=== PATIENT | male | born 1970 | race Caucasian/White ===

== ENCOUNTER 2025-04-14 07:10 | Outpatient (CLI) | payer OTHER, SELFPAY ==
--- NOTE | 2025-04-14 | MR_ITS ---
FINAL REPORT TECHNIQUE: Multiplanar and multisequence imaging of the cervical spine was obtained. CLINICAL HISTORY: chronic neck pain from repetitive motions at work, pain radiates down arms FINDINGS: Alignment is normal. Vertebral body height is preserved. Signal intensity within the substance of the spinal cord is normal. No acute bone marrow edema. No acute paraspinal abnormality. C2/3: No focal disc herniation, central canal stenosis, or neural foraminal narrowing. C3/4: Annular disc bulge with mild degenerative endplate changes. No significant central canal stenosis or neuroforaminal narrowing. C4/5: Annular disc bulge without central canal stenosis, or neural foraminal narrowing. C5/6: Annular disc bulge with degenerative endplate changes and facet osteoarthropathy. There is mild central canal stenosis and severe bilateral neuroforaminal narrowing. C6/7: Right paracentral disc protrusion without central canal stenosis or neuroforaminal narrowing. C7/T1: No focal disc herniation, central canal stenosis, or neural foraminal narrowing. IMPRESSION: 1. Right paracentral disc protrusion at C6-7. 2. Multilevel degenerative disc disease, most pronounced at C5-6. Reviewed, Interpreted and Dictated by Gladys Merchant MD Transcribed by Christy Abbasi Authenticated and [facility]
--- OUTSIDE RECORDS SUMMARY | 2025-04-14 07:14 | XMS_ITS | Continuity of Care Document ---
Author Organization [facility] Address [facility] [place] [address] Care Team Providers Care Collections Manager Name Role Phone MARKO BIGGS Speeder Frame Tender [phone] Assessment No assessment recorded. Plan of Treatment Reminders Order Date Submit Date Provider Last Modified By Organization Details Last Modified Time Details Appointments None recorded. Lab None recorded. Referral physical therapist referral 2024 025 [facility], [address], [place], [address], 01:05:04 Procedures None recorded. Surgeries None recorded. Imaging MRI, cervical spine, w/o contrast [address] ([facility]), [address], [place], [address], 5 11:37:25 Medication Orders cyclobenzap rine 10 mg tablet 2024 025 [facility], [facility] [facility], [place], [address], 5 14:55:07 duloxetine 60 mg capsule,del ayed release 2024 025 [facility], [address] [place] [address], [address], 5 14:55:08 Patient TargetsNo targets recorded. Patient InstructionsNo instructions recorded. Reason for Referral Physical Therapist Referral for Neck pain Referring Physician: Shelby Monteiro, Family Medicine, Encounter Date: 03/17/2025 Procedures Surgical History Date Name Laterality Status Provider Name and Address Organization Details Recorded Time Appendectomy completed Mago Dodd [employer], [employer]. 06/25/2024 14:23:26 Imaging Results None recorded. Procedure Notes None recorded. Medical Equipment None Reported. Allergies No known drug allergies Medications Name Sig Start Date Stop Date Status Note LastModified by Organization Details LastModified Time cyclobenzapr ine 10 mg tablet TAKE 1 TABLET BY MOUTH 3 TIMES DAILY NEEDED active Not Available Not Available No t Available omeprazole 40 mg capsule,moshe yed release TAKE ONE CAPSULE BY MOUTH EVERY DAY active Not Available Not Available No t Available Prilosec OTC 20 mg tablet,delay ed release Take 1 tablet every day by oral route. 03/17 completed Not Available Not Available Not Available duloxetine 60 mg capsule,moshe yed release TAKE 1 CAPSULE BY MOUTH TWICE DAILY FOR 90 DAYS active Not Available Not Available No t Available Vitals Date Recorded Body height Body mass index (BMI) Body weight Heart rate Oxygen saturation Oxygen saturation in Arterial blood by Pulse oximetry Body temperature Systolic And Diastolic Provider Name and Address Organization Details Last Updated DateTime 5 180.34 cm 27.5 kg/m2 36928.7 g 80 /min 98 % 98 % 97.2 [degF] 130/83 mm[Hg] Mago Coultery [employer], [employer]. 5 09:38:12 Social History Question Answer Notes LastModified by Organizat ion Details LastModified Time Tobacco Smoking Status Former Smoker [employer]ago [employer]. 06/25/2024 14:23:20 Are You Blind Or Do You Have Difficulty Seeing? Yes Information not available 06/25/2024 What Is Your Level Of Caffeine Consumption? Occasional Information not available 06/25/2024 Are You Deaf Or Do You Have Serious Difficulty Hearing? No Information not available 06/25/2024 What Type Of Diet Are You Following? REGULAR Information not available 06/25/2024 How Many Days Of Moderate To Strenuous Exercise, Like A Brisk Walk, Did You Do In The Last 7 Days? 5 Information not available 06/25/2024 When Did You Quit Smoking? 11-15yearssinc elastcigarette Information not available 06/25/2024 Which Of Your Hands Is Dominant? Right Information not available 06/25/2024 What Was The Date Of Your Most Recent Tobacco Screening? 03/27/2025 Information not available 03/27/2025 What Is Your Current Pack Years? 20-29packyears Information not available 06/25/2024 What Is Your Relationship Status? Information not available 06/25/2024 Have You Repeated Any Grades? No Information not available 06/25/2024 How Much Tobacco Do You Smoke? 1 PPD Information not available 06/25/2024 Has Tobacco Cessation Counseling Been Provided? No Information not available 06/25/2024 Do You Have Difficulty Walking Or Climbing Stairs? No Information not available 06/25/2024 Sex: Male Functional Status Question Answer Note LastModified by Organizat ion Details LastModified Time Do you use any illicit or recreational drugs? No Information not available 06/25/2024 Do you or have you ever used any other forms of tobacco or nicotine? No Information not available 06/25/2024 What is your level of alcohol consumption? None Information not available 06/25/2024 Are you currently employed? Yes Information not available 06/25/2024 Are you able to walk independently without assistance or assistive devices? YESWOREST Information not available 06/25/2024 Do you have difficulty doing errands alone? No Information not available 06/25/2024 Are you able to care for yourself independently? Yes Information not available 06/25/2024 Do you have difficulty dressing, bathing, grooming, or toileting? No Information not available 06/25/2024 What is your exercise level? Occasional Information not available 06/25/2024 Mental Status Question Answer Note LastModified by Organization D etails LastModified Time Do you have difficulty concentrating, remembering or making decisions? No Information no t available 06/25/2024 Family History Nothing Reported. Medical History No medical history recorded. Immunizations Vaccine Type Date Status Note Provider Nam e and Address Organization Details Recorded Time COVID-19, mRNA, LNP-S, PF, 100 mcg/0.5mL dose or 50 mcg/0.25mL dose 09/24/2020 completed Not Available [facility] 13:51:55 COVID-19, mRNA, LNP-S, PF, 100 mcg/0.5mL dose or 50 mcg/0.25mL dose 10/22/2020 completed Not Available [facility] 13:51:55 COVID-19, mRNA, LNP-S, PF, 100 mcg/0.5mL dose or 50 mcg/0.25mL dose 05/20/2021 completed Not Available [facility] 13:51:55 Tdap 06/18/2021 completed Not Available [facility] 03/27/2025 13:51:55 COVID-19, mRNA, LNP-S, PF, 100 mcg/0.5mL dose or 50 mcg/0.25mL dose 02/18/2022 completed Not Available [facility] 13:51:55 Past Encounters Encounter ID Performer Location Encounter Start Date Encounter Closed Date Diagnosis/Indication Diagnosis SNOMED-CT Code Diagnosis ICD10 Code Diagnosis IMO Codes Diagnosis Note [id number] Shelby Monteiro APRN [address] [address] 03/17/2025 09:29:53 03/17/2025 10:27:08 Narrowing of intervertebral disc space 52362564 M99.79 [id number] Neck pain 66889543 M54.2 21478 Depressed mood 339371495 R45.89 [id number] Overweight in adulthood with body mass index of 25 or more but less than 30 928187896 Z68.27 [id number] Health Concerns Section Related Observation LastModified by Organization Detai ls LastModified Time None Recorded Concern Status LastModified by Organization Details LastModified Time None Recorded Payers Encounter Date Sequence Insurance Name Policy Number Policy Hanson Covered Member ID Hanson Member ID Guarantor Name 03/17/2025 1 *SELF PAY* Ra caty Rodriguez Notes Date Note Type Note Provider Name and Address Organization Details Recorded Time 03/17/2025 text/html pt here today for f/u for neck pain. pt states that he has recently filed a workman's comp claim and will bring back the information. pt states that the neck pain has actually gotten worse. states that he has not been able to go back to work since first visit 9 months ago. states that the muscle relaxer helps some at night in that it helps relaxes him and makes him sleepy but it doesnt help much during the day. states that he can barely move his neck. states that it is a constant dull ache and then when he moves his neck it is worse. states that now the neck pain is causing pt to have headaches almost daily and the pain is going down his back. states that he takes ibuprofen often and the he has to lay flat on the floor to get his back to stop hurting. and then that makes his neck hurt worse. on exam, neck has limited ROM with side to side, flexion and extension, with pain. pt states that there is also pain at base of skull that is causing him a headache. pt also states that due to him not being able to work he is worried about his bills and that he is not contributing to his family. states that he is having to depend on his parents for help at times. states that he is feeling depressed. states that he has felt depression before but never like this. denies any thoughts or plans of suicide. states that he just feels down not being able to work due to the next pain. i am going to order an MRI for further evaluation of the disc, PT, cymbalta and refill the muscle relaxer. Shelby Monteiro APRN [address] [facility], [place], [address], [facility] [employer] 03/17/2025 11:36:39
== END 2025-04-14 23:59 | disposition home or self-care (01) ==
LOC: RAD 07:12
PROVIDERS: PCP Nurse Practitioner; Visit Provider Nurse Practitioner
DX: M50.31 Other cervical disc degeneration, high cervical region (principal); M50.321 Other cervical disc degeneration at C4-C5 level; M50.322 Other cervical disc degeneration at C5-C6 level; M50.223 Other cervical disc displacement at C6-C7 level
CPT/HCPCS: 72141

== ENCOUNTER 2025-04-29 16:00 | Outpatient (RCR) | payer OTHER, SELFPAY | END 2025-04-29 23:59 | disposition home or self-care (01) | LOC: PT.CARL 16:00 | PROVIDERS: Visit Provider Nurse Practitioner | DX: M54.2 Cervicalgia (principal) | CPT/HCPCS: 97012; 97110; 97112; 97140; 97161; 97530 ==

== ENCOUNTER 2025-05-27 11:00 | Outpatient (RCR) | payer OTHER, SELFPAY | END 2025-05-27 23:59 | disposition home or self-care (01) | LOC: PT.CARL 11:00 | PROVIDERS: PCP Nurse Practitioner; Visit Provider Nurse Practitioner | DX: M54.2 Cervicalgia (principal) | CPT/HCPCS: 97012; 97110; 97112; 97530 ==

== ENCOUNTER 2025-06-04 13:39 | Outpatient (RCR) | payer OTHER, SELFPAY | END 2025-06-09 10:49 | disposition home or self-care (01) | LOC: PT.CARL 13:39 | PROVIDERS: PCP Nurse Practitioner; Visit Provider Nurse Practitioner | DX: M54.2 Cervicalgia (principal) | CPT/HCPCS: 97110; 97112 ==